=== PATIENT | female | born 1985 | race Caucasian/White ===

== ENCOUNTER 2017-08-16 12:18 | Emergency (ER) | payer OTHER ==
[~2017-08-16] VITALS: Ht 162.6 cm; Wt 126.3 kg
[2017-08-16 13:31] VITALS: BP 150/84
== END 2017-08-16 13:31 | disposition home or self-care (01) ==
LOC: ED 12:18
DX: B34.9 Viral infection, unspecified (principal); H10.32 Unspecified acute conjunctivitis, left eye; J02.9 Acute pharyngitis, unspecified; R03.0 Elevated blood-pressure reading, without diagnosis of hypertension
CPT/HCPCS: J7613; J7644

== ENCOUNTER 2020-08-21 21:50 | Emergency (ER) | payer OTHER ==
[~2020-08-21] VITALS: Ht 160 cm; Wt 123.8 kg
[2020-08-21 22:00] VITALS: Ht 160 cm; Wt 123.8 kg
[2020-08-22 00:03] VITALS: BP 103/56
== END 2020-08-22 00:03 | disposition home or self-care (01) ==
LOC: ED 21:50
DX: R07.89 Other chest pain (principal); M54.6 Pain in thoracic spine; Z98.890 Other specified postprocedural states
CPT/HCPCS: J1885

== ENCOUNTER 2020-09-21 22:53 | Emergency (ER) | payer OTHER, SELFPAY ==
[~2020-09-21] VITALS: Ht 162.6 cm; Wt 122.5 kg
[2020-09-21 22:55] VITALS: Ht 162.6 cm; Wt 122.5 kg
[2020-09-22 00:20] VITALS: BP 134/70
== END 2020-09-22 00:20 | disposition home or self-care (01) ==
LOC: ED 22:53
DX: U07.1 COVID-19 (principal)
CPT/HCPCS: U0003